=== PATIENT | female | born 1955 | race Caucasian/White ===

== ENCOUNTER 2016-08-02 16:20 | Emergency (ER) | payer OTHER ==
[~2016-08-02] VITALS: Ht 147.3 cm; Wt 66.9 kg
[~2016-08-02 16:20] MED LIST: ANTIVERT12.5 MG PO; ASPIRIN325 MG PO; Aspirin Chewable PO; BENICAR20 MG PO; BENTYL10 MG PO; Bentyl PO; COBAL-10001000 MCG/2 PO; CREON DR 12,001 EAC1 PO; CYCLOBENZAPRINE10 MG PO; Colace PO; Creon 12 PO; DIFLUCAN100 MG PO; Diflucan PO; ERGOCALCIF50000 UNIT PO; Ecotrin PO; FLAGYL250 MG PO; FLEXERIL10 MG PO; GABAPENTIN600 MG PO; GEMFIBROZIL600 MG PO; HUMALOG MI100 UNIT/3 SC; HUMALOG100 UNIT/1 SC; HUMALOG100 UNIT/2 SQ; HUMALOG100 UNITS/ SC; HUMULIN N100 UNITS/ SC; HUMULIN N300 UNIT/3 SC; IMODIUM A-D2 MG PO; LEVAQUIN500 MG PO; LEVEMIR FL100 UNITS/ SC; LEVEMIR100 UNIT/2 SQ; NEURONTIN600 M1 PO; NEURONTIN600 MG PO; PREDNISONE5 MG PO; RAMIPRIL1.25 MG PO; REGLAN10 MG PO; Reglan PO; ST. JOSEPH ASPI81 MG PO; TYLENOL EXTRA500 MG PO; Theragran PO; VENTOLIN HFA18 GM IH; VITAMIN D250000 UNIT PO; VITAMIN D3400 UNI1 PO; VITAMIN D400 UNIT PO; XANAX0.25 MG PO; ZANAFLEX4 M1 PO; Zithromax PO
[2016-08-02 17:05] LABS: HEMATOCRIT 35.3 % (36.0-46.0); MCH 29.8 PG (29.0-34.0); MCHC 32.6 G/DL (30.0-36.0); MCV 91.5 FL (83-99); PLATELET COUNT 174 K/uL (156-360); RBC DIS.WIDTH-CV 12.7 % (11.8-14.6); RBC DIS.WIDTH-SD 41.9 % (39-53); RED BLOOD COUNT 3.86 M/uL (3.80-5.20); WHITE BLOOD COUNT 8.9 K/uL (4.1-10.2)
[2016-08-02 17:17] LABS: CHLORIDE 111 mEq/L (99-109); POTASSIUM 4.1 mEq/L (3.7-5.4); SODIUM 144 mEq/L (136-147)
[2016-08-02 17:19] LABS: GLUCOSE 46 mg/dL (70-99)
[2016-08-02 17:21] LABS: ANION GAP 9 MEQ/L (2-14)
[2016-08-02 17:23] LABS: GFR ESTIMATE (CALCULATED) 54 mL/min/
[2016-08-02] MEDS ORDERED: GABAPENTIN600 MG PO (17:23)
[2016-08-02 17:24] LABS: UREA NITROGEN (BUN) 26 mg/dL (9-23)
[2016-08-02 17:30] VITALS: BP 157/73
[2016-08-02 17:31] LABS: TROP-I INTERPRETATION NEGATIVE; TROPONIN-I 0.04 ng/mL (0.0-0.30)
[2016-08-02 18:00] VITALS: BP 166/74
[2016-08-02 18:51] LABS: D-DIMER ELISA 0.82 mg/L FEU (< 0.57)
[2016-08-02 20:01] LABS: TROP-I INTERPRETATION NEGATIVE; TROPONIN-I 0.04 ng/mL (0.0-0.30)
[2016-08-02] MEDS ORDERED: LASIX20 MG PO (21:02)
[2016-08-02 22:00] VITALS: BP 168/75
== END 2016-08-02 22:12 | disposition home or self-care (01) ==
LOC: EME 16:20
PROVIDERS: Emergency Medicine
DX: R07.89 Other chest pain (principal); I50.9 Heart failure, unspecified; E11.9 Type 2 diabetes mellitus without complications; E78.5 Hyperlipidemia, unspecified; Z98.1 Arthrodesis status; Z79.4 Long term (current) use of insulin; Z79.82 Long term (current) use of aspirin
CPT/HCPCS: 71020; 71275; 80048; 84484; 85027; 85379; 93005; J7030

== ENCOUNTER 2016-08-06 18:24 | Observation (INO) | payer OTHER ==
[~2016-08-06] VITALS: Ht 147.3 cm; Wt 66.8 kg
[~2016-08-06 18:24] MED LIST changes: +LASIX20 MG PO
[2016-08-06 19:47] LABS: HEMATOCRIT 33.7 % (36.0-46.0); MCH 29.8 PG (29.0-34.0); MCHC 32.9 G/DL (30.0-36.0); MCV 90.6 FL (83-99); MEAN PLAT.VOLUME 10.7 uM^3 (9.5-12.4); PLATELET COUNT 179 K/uL (156-360); RBC DIS.WIDTH-CV 12.7 % (11.8-14.6); RBC DIS.WIDTH-SD 41.5 % (39-53); RED BLOOD COUNT 3.72 M/uL (3.80-5.20); WHITE BLOOD COUNT 9.3 K/uL (4.1-10.2)
[2016-08-06 20:07] LABS: CHLORIDE 109 mEq/L (99-109); POTASSIUM 4.8 mEq/L (3.7-5.4); SODIUM 145 mEq/L (136-147)
[2016-08-06 20:09] LABS: GLUCOSE 53 mg/dL (70-99)
[2016-08-06 20:10] LABS: ANION GAP 10 MEQ/L (2-14)
[2016-08-06 20:11] LABS: TOTAL BILIRUBIN 0.2 mg/dL (0.0-1.0)
[2016-08-06 20:12] LABS: ALKALINE PHOSPHATASE 75 IU/L (3-129)
[2016-08-06 20:13] LABS: GFR ESTIMATE (CALCULATED) 35 mL/min/
[2016-08-06 20:14] LABS: DIRECT BILIRUBIN 0.1 mg/dL (0.0-0.3); TROP-I INTERPRETATION NEGATIVE; TROPONIN-I < 0.01 ng/mL (0.0-0.30); UREA NITROGEN (BUN) 36 mg/dL (9-23)
[2016-08-06 20:16] LABS: LIPASE 7 U/L (1.0-51.0)
[2016-08-06] MEDS ORDERED: HUMALOG100 UNIT/1 SC (20:33)
[2016-08-06] MEDS ORDERED: VENTOLIN HFA18 GM IH (20:34)
[2016-08-06 21:04] LABS: POINT-OF-CARE METER ID UU13113702
[2016-08-06 21:44] LABS: POINT-OF-CARE METER ID UU13113702
[2016-08-06 22:42] VITALS: BP 177/76
[2016-08-06 23:21] LABS: POINT-OF-CARE METER ID UU14162513
[2016-08-06 23:50] VITALS: BP 142/88
[2016-08-07 02:05] LABS: POINT-OF-CARE METER ID UU14162513
[2016-08-07 03:05] VITALS: BP 176/76
[2016-08-07 03:37] LABS: TROP-I INTERPRETATION NEGATIVE; TROPONIN-I < 0.01 ng/mL (0.0-0.30)
[2016-08-07 03:45] LABS: HDL CHOLESTEROL 36 MG/DL (Desirable>=50); LDL CHOLESTEROL 62 mg/dL (Desirable<100); NON-HDL CHOLESTEROL 101 mg/dL (Desirable<160); TOTAL CHOLESTEROL 137 mg/dL (Desirable<200); TRIGLYCERIDES 196 MG/DL (Normal: <150)
[2016-08-07 06:13] VITALS: BP 110/57
[2016-08-07 06:48] LABS: Estimated Average Glucose 280 mg/dL (70-123); HEMOGLOBIN A1c (GLYCOHEMOGLOB) 11.4 % HGB (Below 5.7)
[2016-08-07 07:59] VITALS: BP 163/76
[2016-08-07 09:26] LABS: POINT-OF-CARE METER ID UU13113700
[2016-08-07 09:54] LABS: TROP-I INTERPRETATION NEGATIVE; TROPONIN-I < 0.01 ng/mL (0.0-0.30)
[2016-08-07 10:00] LABS: ANION GAP 9 MEQ/L (2-14); CHLORIDE 107 MEQ/L (99-109); GFR ESTIMATE (CALCULATED) 54 mL/min/; POTASSIUM 4.8 MEQ/L (3.7-5.4); SAMPLE HEMOLYSIS CHECK 0; SAMPLE ICTERIC CHECK 0; SAMPLE LIPEMIA CHECK 0; SODIUM 142 MEQ/L (136-147); UREA NITROGEN (BUN) 29 mg/dL (9-23)
[2016-08-07 10:05] LABS: GLUCOSE 223 mg/dL (70-99)
[2016-08-07 11:54] VITALS: BP 142/68
[2016-08-07 12:10] LABS: POINT-OF-CARE METER ID UU13113700
[2016-08-07] MEDS ORDERED: TRAMADOL HCL50 MG PO (15:05)
[2016-08-07] MEDS ORDERED: LIDODERM 5% P1 PATCH TD (15:09)
[2016-08-07 16:38] LABS: POINT-OF-CARE METER ID UU13113700
== END 2016-08-07 16:48 | disposition home or self-care (01) ==
LOC: EME 18:24 → EDOF 21:25 → 5WEST 21:25
PROVIDERS: Hospitalist; Physician Assistant; Physician Assistant Medical
DX: R07.89 Other chest pain (principal); N17.9 Acute kidney failure, unspecified; E11.40 Type 2 diabetes mellitus with diabetic neuropathy, unspecified; E11.21 Type 2 diabetes mellitus with diabetic nephropathy; E11.22 Type 2 diabetes mellitus with diabetic chronic kidney disease; I12.9 Hypertensive chronic kidney disease with stage 1 through stage 4 chronic kidney disease, or unspecified chronic kidney disease; N18.3 Chronic kidney disease, stage 3 (moderate); E11.319 Type 2 diabetes mellitus with unspecified diabetic retinopathy without macular edema; E11.65 Type 2 diabetes mellitus with hyperglycemia; E78.5 Hyperlipidemia, unspecified; K86.89 Other specified diseases of pancreas; G47.33 Obstructive sleep apnea (adult) (pediatric); E66.9 Obesity, unspecified; Z68.30 Body mass index [BMI] 30.0-30.9, adult; Z79.4 Long term (current) use of insulin
CPT/HCPCS: 71020; 80048; 80061; 80076; 82948; 83036; 83690; 84484; 85027; 93005; 99202; 99281; 99285; G0378; J0360; J1650; J1815; J7030; J7042

== ENCOUNTER 2016-11-07 15:47 | Emergency (ER) | payer OTHER ==
[~2016-11-07] VITALS: Ht 147.3 cm; Wt 69.6 kg
[~2016-11-07 15:47] MED LIST changes: +LIDODERM 5% P1 PATCH TD; +TRAMADOL HCL50 MG PO
[2016-11-07 16:42] LABS: EOSINOPHIL (%) 1.6 % (0-5); EOSINOPHIL COUNT 0.1 K/uL (0-0.3); HEMATOCRIT 34.4 % (36.0-46.0); IMMATURE GRANULOCYTE (%) 0.3 % (0.0-0.7); INSTRUMENT ABS NEUTROPHIL CT 4.1 K/uL; LYMPHOCYTE COUNT 2.2 K/uL (1.0-2.8); MCH 29.7 PG (29.0-34.0); MCHC 32.3 G/DL (30.0-36.0); MEAN PLAT.VOLUME 10.8 uM^3 (9.5-12.4); MONOCYTE (%) 6.1 % (3-12); MONOCYTE COUNT 0.4 K/uL (0-0.8); NEUTROPHIL (%) 59.5 % (45-76); NEUTROPHIL COUNT 4.1 K/uL (1.8-6.4); PLATELET COUNT 176 K/uL (156-360); RBC DIS.WIDTH-CV 12.5 % (11.8-14.6); RBC DIS.WIDTH-SD 41.8 % (39-53); RED BLOOD COUNT 3.74 M/uL (3.80-5.20); WHITE BLOOD COUNT 6.9 K/uL (4.1-10.2)
[2016-11-07 16:49] LABS: CHLORIDE 112 mEq/L (99-109); POTASSIUM 5.2 mEq/L (3.7-5.4); SODIUM 143 mEq/L (136-147)
[2016-11-07 16:50] LABS: MAGNESIUM 1.7 mg/dL (1.3-2.7)
[2016-11-07 16:51] LABS: GLUCOSE 116 mg/dL (70-99)
[2016-11-07 16:52] LABS: PROTHROMBIN TIME 10.5 (9.2-11.2); PTT 25.7 (25-32)
[2016-11-07 16:53] LABS: ANION GAP 5 MEQ/L (2-14)
[2016-11-07 16:55] LABS: GFR ESTIMATE (CALCULATED) 54 mL/min/
[2016-11-07 16:56] LABS: UREA NITROGEN (BUN) 30 mg/dL (9-23)
[2016-11-07 17:03] LABS: TROP-I INTERPRETATION NEGATIVE; TROPONIN-I < 0.01 ng/mL (0.0-0.30)
[2016-11-07] MEDS ORDERED: UNABLE TO OBTAIN (18:43)
[2016-11-07 18:58] VITALS: BP 172/71
== END 2016-11-07 19:10 | disposition home or self-care (01) ==
LOC: EME 15:47
PROVIDERS: Emergency Medicine
DX: E11.40 Type 2 diabetes mellitus with diabetic neuropathy, unspecified (principal); I10 Essential (primary) hypertension; E78.5 Hyperlipidemia, unspecified; Z79.4 Long term (current) use of insulin; Z79.82 Long term (current) use of aspirin
CPT/HCPCS: 70450; 80048; 83735; 84484; 85025; 85610; 85730; 93005; 99281; 99284; J7030

== ENCOUNTER 2017-05-05 15:48 | Emergency (ER) | payer OTHER ==
[~2017-05-05] VITALS: Ht 147.3 cm; Wt 72.2 kg
[~2017-05-05 15:48] MED LIST changes: +GABAPENTIN300 MG PO; -GABAPENTIN600 MG PO; +HUMALOG MI100 UNIT/6 SC; +UNABLE TO OBTAIN
[2017-05-05] MEDS ORDERED: TYLENOL ARTHRI650 MG PO (16:10)
[2017-05-05] MEDS ORDERED: CREON DR 12,001 EAC1 PO (16:11)
[2017-05-05 17:43] LABS: HEMATOCRIT 38.8 % (36.0-46.0); HEMOGLOBIN 12.7 G/DL (11.9-15.5); MCH 29.9 PG (29.0-34.0); MCHC 32.7 G/DL (30.0-36.0); MCV 91.3 FL (83-99); PLATELET COUNT 144 K/uL (156-360); RBC DIS.WIDTH-CV 12.5 % (11.8-14.6); RBC DIS.WIDTH-SD 41.4 % (39-53); RED BLOOD COUNT 4.25 M/uL (3.80-5.20); WHITE BLOOD COUNT 7.9 K/uL (4.1-10.2)
[2017-05-05 17:57] LABS: ALBUMIN 4.2 g/dL (3.2-4.8); CHLORIDE 102 mEq/L (99-109); POTASSIUM 5.4 mEq/L (3.7-5.4); SODIUM 135 mEq/L (136-147)
[2017-05-05 17:58] LABS: AMYLASE 73 IU/L (1-118)
[2017-05-05 18:00] LABS: GLUCOSE 387 mg/dL (70-99); TOTAL PROTEIN 7.5 g/dL (6.4-8.3)
[2017-05-05 18:02] LABS: TOTAL BILIRUBIN 1.5 mg/dL (0.0-1.0)
[2017-05-05 18:03] LABS: ALKALINE PHOSPHATASE 211 IU/L (3-129); CREATININE 1.2 mg/dL (0.6-1.3); GFR ESTIMATE (CALCULATED) 49 mL/min/
[2017-05-05 18:04] LABS: TROP-I INTERPRETATION NEGATIVE; TROPONIN-I < 0.01 ng/mL (0.0-0.30); UREA NITROGEN (BUN) 27 mg/dL (9-23)
[2017-05-05 18:05] LABS: AST (GOT) 432 IU/L (2-34)
[2017-05-05 18:06] LABS: ALT (GPT) 211 IU/L (3-49)
[2017-05-05 18:07] LABS: LIPASE 152 U/L (1.0-51.0)
[2017-05-05 22:20] LABS: APPEARANCE CLEAR ((CLEAR)); BILIRUBIN NEGATIVE; BLOOD NEGATIVE; COLOR YELLOW ((YELLOW)); GLUCOSE (STRIP) >=500; KETONES NEGATIVE; LEUKOCYTES TRACE; NITRITE NEGATIVE; PROTEIN (STRIP) 100; SPECIFIC GRAVITY 1.023 (1.000-1.030); UROBILINOGEN 0.2 MG/DL (0.2-1.0)
[2017-05-05 22:23] LABS: BACTERIA RARE /HPF; EPITHELIAL CELLS RARE /HPF; MUCUS NONE SEEN /LPF; RED BLOOD CELLS 0-5 /HPF (0-5)
[2017-05-05] MEDS ORDERED: PERCOCET 5/31 TABLET PO (22:31)
[2017-05-05 22:57] VITALS: BP 181/88
== END 2017-05-05 22:58 | disposition home or self-care (01) ==
LOC: EME 15:48
PROVIDERS: Physician Assistant
DX: R74.0 Nonspecific elevation of levels of transaminase and lactic acid dehydrogenase [LDH] (principal); R07.2 Precordial pain; I10 Essential (primary) hypertension; E11.40 Type 2 diabetes mellitus with diabetic neuropathy, unspecified; E78.5 Hyperlipidemia, unspecified; M43.22 Fusion of spine, cervical region; Z79.4 Long term (current) use of insulin; Z90.49 Acquired absence of other specified parts of digestive tract; Z86.73 Personal history of transient ischemic attack (TIA), and cerebral infarction without residual deficits; Z88.1 Allergy status to other antibiotic agents; Z88.8 Allergy status to other drugs, medicaments and biological substances
CPT/HCPCS: 71046; 71275; 74177; 80053; 81003; 82150; 83690; 84484; 85027; 87077; 87086; 87186; 93005; 99281; 99285; J7030

== ENCOUNTER 2017-05-06 22:54 | Inpatient (IN) | payer OTHER ==
[~2017-05-06] VITALS: Ht 147.3 cm; Wt 69.0 kg
[~2017-05-06 22:54] MED LIST changes: +PERCOCET 5/31 TABLET PO; +TYLENOL ARTHRI650 MG PO
[2017-05-07 00:25] LABS: HEMATOCRIT 36.4 % (36.0-46.0); MCH 30.7 PG (29.0-34.0); MCV 93.1 FL (83-99); PLATELET COUNT 129 K/uL (156-360); RBC DIS.WIDTH-CV 12.7 % (11.8-14.6); RBC DIS.WIDTH-SD 43.6 % (39-53); RED BLOOD COUNT 3.91 M/uL (3.80-5.20); WHITE BLOOD COUNT 10.9 K/uL (4.1-10.2)
[2017-05-07 00:37] LABS: CHLORIDE 104 mEq/L (99-109); POTASSIUM 4.6 mEq/L (3.7-5.4); SODIUM 139 mEq/L (136-147)
[2017-05-07 00:40] LABS: GLUCOSE 229 mg/dL (70-99); TOTAL PROTEIN 7.2 g/dL (6.4-8.3)
[2017-05-07 00:43] LABS: CREATININE 1.6 mg/dL (0.6-1.3); GFR ESTIMATE (CALCULATED) 35 mL/min/
[2017-05-07 00:44] LABS: UREA NITROGEN (BUN) 22 mg/dL (9-23)
[2017-05-07 00:46] LABS: ALT (GPT) 191 IU/L (3-49)
[2017-05-07 00:48] LABS: ALKALINE PHOSPHATASE 382 IU/L (3-129); AST (GOT) 140 IU/L (2-34); TOTAL BILIRUBIN 3.1 mg/dL (0.0-1.0)
[2017-05-07 00:49] LABS: APPEARANCE CLOUDY ((CLEAR)); BILIRUBIN MODERATE; BLOOD SMALL; COLOR AMBER ((YELLOW)); GLUCOSE (STRIP) NEGATIVE; KETONES NEGATIVE; LEUKOCYTES TRACE; NITRITE NEGATIVE; PROTEIN (STRIP) >=500; SPECIFIC GRAVITY 1.033 (1.000-1.030)
[2017-05-07 01:06] LABS: BACTERIA 2+ /HPF; EPITHELIAL CELLS RARE /HPF; MUCUS NONE SEEN /LPF; RED BLOOD CELLS 0-5 /HPF (0-5); UCUL ADDED? YES
[2017-05-07 01:14] LABS: LIPASE 4 U/L (1.0-51.0)
[2017-05-07 01:16] LABS: ICTOTEST POSITIVE
[2017-05-07 11:33] LABS: HEPATITIS B SURFACE ANTIGEN Nonreactive
[2017-05-07 11:34] LABS: HEPATITIS C ANTIBODY Nonreactive
[2017-05-07 11:35] LABS: ANTI-HEPATITIS A VIRUS (IGM) Nonreactive
[2017-05-07 11:36] LABS: ANTI-HEPATITIS B CORE (IGM) Nonreactive
[2017-05-07] MEDS ORDERED: ASPIR-LOW81 MG PO (12:12)
[2017-05-07] MEDS ORDERED: GEMFIBROZIL600 MG PO (12:12)
[2017-05-07] MEDS ORDERED: FOLIC ACID0.8 MG PO (12:12)
[2017-05-07 16:47] VITALS: BP 187/79
[2017-05-08 00:40] VITALS: BP 119/57
[2017-05-08 06:57] LABS: INTER. NORMALIZED RATIO 1.1
[2017-05-08 07:00] LABS: PTT 32.4 SEC (25-37)
[2017-05-08 07:15] LABS: ALKALINE PHOSPHATASE 297 IU/L (3-129); ALT (GPT) 72 IU/L (3-49); AST (GOT) 31 IU/L (2-34); CHLORIDE 112 MEQ/L (99-109); DIRECT BILIRUBIN 1.1 mg/dL (0.0-0.3); POTASSIUM 4.3 MEQ/L (3.7-5.4); SODIUM 144 MEQ/L (136-147); TOTAL BILIRUBIN 1.6 MG/DL (0.0-1.0); TOTAL PROTEIN 5.4 G/DL (6.4-8.3); UREA NITROGEN (BUN) 15 mg/dL (9-23)
[2017-05-08 07:19] LABS: HEMATOCRIT 31.2 % (36.0-46.0); MCH 30.7 PG (29.0-34.0); MCHC 31.7 G/DL (30.0-36.0); MCV 96.9 FL (83-99); PLATELET COUNT 101 K/uL (156-360); RBC DIS.WIDTH-CV 13.1 % (11.8-14.6); RBC DIS.WIDTH-SD 46.8 % (39-53); RED BLOOD COUNT 3.22 M/uL (3.80-5.20); WHITE BLOOD COUNT 5.5 K/uL (4.1-10.2)
[2017-05-08 07:22] LABS: CREATININE 1.1 MG/DL (0.6-1.3); GFR ESTIMATE (CALCULATED) 54 mL/min/; GLUCOSE 87 mg/dL (70-99)
[2017-05-08 07:23] LABS: HEMOGLOBIN 9.9 G/DL (11.9-15.5)
[2017-05-08 08:37] VITALS: BP 168/77
[2017-05-08] MEDS ORDERED: TRULICITY1.5 MG/0.5 SC (15:37)
[2017-05-08 16:24] VITALS: BP 132/74
[2017-05-09 00:11] VITALS: BP 177/79
[2017-05-09 07:17] LABS: ALBUMIN 2.9 G/DL (3.2-4.8); ALKALINE PHOSPHATASE 330 IU/L (3-129); ALT (GPT) 51 IU/L (3-49); AST (GOT) 25 IU/L (2-34); CHLORIDE 110 MEQ/L (99-109); GFR ESTIMATE (CALCULATED) > 59 mL/min/; GLUCOSE 91 mg/dL (70-99); POTASSIUM 3.8 MEQ/L (3.7-5.4); SODIUM 144 MEQ/L (136-147); TOTAL PROTEIN 5.1 G/DL (6.4-8.3); UREA NITROGEN (BUN) 15 mg/dL (9-23)
[2017-05-09 07:21] LABS: TOTAL BILIRUBIN 1.2 MG/DL (0.0-1.0)
[2017-05-09 08:10] VITALS: BP 167/77
[2017-05-09 08:58] LABS: BASOPHIL (%) 0.4 % (0-1); EOSINOPHIL (%) 4.4 % (0-5); EOSINOPHIL COUNT 0.2 K/uL (0-0.3); IMMATURE GRANULOCYTE (%) 0.2 % (0.0-0.7); LYMPHOCYTE (%) 25.5 % (15-42); LYMPHOCYTE COUNT 1.4 K/uL (1.0-2.8); MONOCYTE (%) 8.2 % (3-12); MONOCYTE COUNT 0.5 K/uL (0-0.8); NEUTROPHIL (%) 61.3 % (45-76); NEUTROPHIL COUNT 3.4 K/uL (1.8-6.4)
[2017-05-09] MEDS ORDERED: AUGMENTIN875 MG PO (14:43)
[2017-05-09 16:49] VITALS: BP 155/70
== END 2017-05-09 17:20 | disposition home health service (06) | DRG 445 ==
LOC: EME 22:54 → 5SOUTH 05-07 04:43 → EDOF 05-07 04:43 → ENRESERV 05-07 04:49 → 5SOUTH 05-07 16:15
PROVIDERS: Hospitalist; Internal Medicine; Internal Medicine Gastroenterology
DX: K80.31 Calculus of bile duct with cholangitis, unspecified, with obstruction (principal); N39.0 Urinary tract infection, site not specified; R74.0 Nonspecific elevation of levels of transaminase and lactic acid dehydrogenase [LDH]; N17.9 Acute kidney failure, unspecified; E78.5 Hyperlipidemia, unspecified; D63.8 Anemia in other chronic diseases classified elsewhere; K86.1 Other chronic pancreatitis; E11.65 Type 2 diabetes mellitus with hyperglycemia; E11.22 Type 2 diabetes mellitus with diabetic chronic kidney disease; E11.40 Type 2 diabetes mellitus with diabetic neuropathy, unspecified; B96.20 Unspecified Escherichia coli [E. coli] as the cause of diseases classified elsewhere; I12.9 Hypertensive chronic kidney disease with stage 1 through stage 4 chronic kidney disease, or unspecified chronic kidney disease; N18.3 Chronic kidney disease, stage 3 (moderate); E86.0 Dehydration; G47.33 Obstructive sleep apnea (adult) (pediatric); E83.51 Hypocalcemia; Z80.1 Family history of malignant neoplasm of trachea, bronchus and lung; E66.9 Obesity, unspecified; Z68.31 Body mass index [BMI] 31.0-31.9, adult; Z87.440 Personal history of urinary (tract) infections; Z90.49 Acquired absence of other specified parts of digestive tract; Z98.1 Arthrodesis status; Z86.73 Personal history of transient ischemic attack (TIA), and cerebral infarction without residual deficits; Z83.3 Family history of diabetes mellitus; Z82.5 Family history of asthma and other chronic lower respiratory diseases; D69.59 Other secondary thrombocytopenia
CPT/HCPCS: 71046; 71275; 74177; 74181; 76705; 80053; 80074; 80076; 81003; 82150; 82248; 82948; 83605; 83690; 84484; 85025; 85027; 85610; 85730; 87040; 87077; 87086; 87186; 93005; 99281; 99285; J0295; J0744; J1644; J1815; J2405; J7030; J7050; S0028

== ENCOUNTER → 2017-06-20 | Outpatient (CLI) | payer OTHER ==
[~2017-06-20] VITALS: Ht 147.3 cm; Wt 69.4 kg
[~2017-06-20] MED LIST changes: +ASPIR-LOW81 MG PO; +AUGMENTIN875 MG PO; +FOLIC ACID0.8 MG PO; +HUMALOG100 UNIT/2 SC; +TRESIBA FL200 UNIT/1 SC; +TRULICITY1.5 MG/0.5 SC
== END | disposition home or self-care (01) ==
LOC: AMB 08:45
PROVIDERS: Internal Medicine Gastroenterology
PROC: 0DJ08ZZ Inspection of Upper Intestinal Tract, Via Natural or Artificial Opening Endoscopic (ICD-10-PCS; principal; 2017-06-20)
DX: K83.8 Other specified diseases of biliary tract (principal); K86.2 Cyst of pancreas; K86.89 Other specified diseases of pancreas
CPT/HCPCS: 82948; C1726; J0330; J2250; J2405; J3010